=== PATIENT | female | born 1980 ===

== ENCOUNTER 2018-05-31 08:45 | Inpatient (IN) | payer OTHER ==
[~2018-05-31] VITALS: Ht 170.2 cm; Wt 101.6 kg
[2018-06-20] MEDS ORDERED: PRENATABS RX T1 EACH PO (10:43)
[2018-06-20] MEDS ORDERED: VALTREX1000 MG PO (10:47)
== END 2018-06-22 12:46 | disposition home or self-care (01) | DRG 798 ==
LOC: LDR 06-20 06:52 → OB/GYN 06-20 06:52
PROVIDERS: ADMIT Obstetrics & Gynecology
PROC: 0UL70ZZ Occlusion of Bilateral Fallopian Tubes, Open Approach (ICD-10-PCS; 2018-06-20)
PROC: 0UQGXZZ Repair Vagina, External Approach (ICD-10-PCS; 2018-06-20)
PROC: 0W8NXZZ Division of Female Perineum, External Approach (ICD-10-PCS; 2018-06-20)
PROC: 3E033VJ Introduction of Other Hormone into Peripheral Vein, Percutaneous Approach (ICD-10-PCS; 2018-06-20)
PROC: 10907ZC Drainage of Amniotic Fluid, Therapeutic from Products of Conception, Via Natural or Artificial Opening (ICD-10-PCS; 2018-06-20)
PROC: 4A1HXCZ Monitoring of Products of Conception, Cardiac Rate, External Approach (ICD-10-PCS; 2018-06-20)
PROC: 10E0XZZ Delivery of Products of Conception, External Approach (ICD-10-PCS; principal; 2018-06-20 15:15)
DX: O71.4 Obstetric high vaginal laceration alone (principal); Z37.0 Single live birth; Z3A.37 37 weeks gestation of pregnancy; Z30.2 Encounter for sterilization; Z22.330 Carrier of Group B streptococcus

== ENCOUNTER 2018-06-11 09:40 | Outpatient (CLI) | payer OTHER | END 2018-06-11 10:28 | disposition home or self-care (01) | LOC: NST 09:40 | DX: Z34.83 Encounter for supervision of other normal pregnancy, third trimester (principal) ==

== ENCOUNTER 2022-04-30 15:32 | Inpatient (IN) | payer OTHER ==
[~2022-04-30] VITALS: Ht 170.2 cm; Wt 72.6 kg
[~2022-04-30 15:32] MED LIST: PRENATABS RX T1 EACH PO; VALTREX1000 MG PO
[2022-05-02] MEDS ORDERED: MOUNJARO5 MG/0.5 M (11:01)
[2022-05-02] MEDS ORDERED: SPIRONOLACTONE25 MG (11:01)
[2022-05-02] MEDS ORDERED: METFORMIN HCL500 M1 (11:01)
== END 2022-05-02 14:37 | disposition home or self-care (01) | DRG 690 ==
LOC: ER 15:32 → MEDJ 22:00
PROVIDERS: ADMIT Internal Medicine; ATTEND Internal Medicine
PROC: BW21Y0Z Computerized Tomography (CT Scan) of Abdomen and Pelvis using Other Contrast, Unenhanced and Enhanced (ICD-10-PCS; principal; 2022-04-30)
DX: N39.0 Urinary tract infection, site not specified (principal); R31.0 Gross hematuria; D72.829 Elevated white blood cell count, unspecified; R10.2 Pelvic and perineal pain; Z20.822 Contact with and (suspected) exposure to COVID-19